=== PATIENT | male | born 1955 | race Caucasian/White ===

== ENCOUNTER 2018-02-06 06:40 | Day surgery (SDC) | payer BC, OTHER ==
[2018-01-31 13:07] VITALS: BMI 26.9
[~2018-02-06 06:40] MED LIST: HEPARIN SODIUM,PORCINE 5,000 UNIT/ML 1 ML VIAL SQ ONE; ceFAZolin IN SWFI 2 GM/20 ML SYRINGE IVP ONE
[2018-02-06] MEDS ORDERED: MORPHINE SULFATE 10 MG/ML SYRINGE ONE (07:28)
[2018-02-06] MEDS ORDERED: LIDOCAINE 1% INJ 10MG/ML (20 ML MDV) ONE (07:28)
[2018-02-06] MEDS ORDERED: KETOROLAC 30 MG/ML 1 ML VIAL ONE (07:28)
[2018-02-06] MEDS ORDERED: ROCURONIUM BROMIDE 10 MG/ML 10 ML VIAL IV ONE (07:28)
[2018-02-06] MEDS ORDERED: PROPOFOL 10 MG/ML 20 ML VIAL IV ONE (07:28)
[2018-02-06] MEDS ORDERED: NEOSTIGMINE 1 MG/ML 10 ML VIAL ONE (07:28)
[2018-02-06] MEDS ORDERED: fentaNYL (PF) 50 MCG/ML 2 ML AMP ONE (07:28)
[2018-02-06] MEDS ORDERED: GLYCOPYRROLATE 0.2 MG/ML 2 ML VIAL ONE (07:28)
[2018-02-06] MEDS ORDERED: MIDAZOLAM 2 MG/2 ML VIAL ONE (07:28)
[2018-02-06] MEDS ORDERED: HYDROmorphone (PF) 1 MG/ML ONE ×2 (07:28)
[2018-02-06] MEDS ORDERED: LACTATED RINGERS 400 ML IV ONE (11:08)
[2018-02-06] MEDS ORDERED: IV FLUID CONTINUATION 300 ML IV ONE (11:09)
[2018-02-06] MEDS ORDERED: ONDANSETRON 4 MG/2 ML VIAL IVP ONE (11:17)
[2018-02-06] MEDS ORDERED: LACTATED RINGERS 1,000 ML IV SCH (11:17)
[2018-02-06] MEDS ORDERED: HYDROmorphone 0.5 MG/0.5 ML SYRINGE IVP PRN (11:17)
[2018-02-06] MEDS ORDERED: DEXAMETHASONE SOD PHOSPHATE 10 MG/ML 1 ML VIAL IV ONE (11:17)
[2018-02-06 11:28] VITALS: RESP 18
[2018-02-06] MEDS ORDERED: HYDROcodone/APAP 5-325MG 1 EACH TAB PO ONE (11:31)
[2018-02-06 11:45] VITALS: BP 121/61; PULSE 70
--- NOTE | 2018-02-06 14:11 | OP ---
OPERATIVE REPORT PREOP DIAGNOSIS: Bilateral inguinal hernia. POSTOP DIAGNOSIS: Bilateral inguinal hernia. PROCEDURE: Laparoscopic bilateral inguinal herniorrhaphy with da Alpesh assistance with mesh. ANESTHESIA: General. SURGEON: Dr. Barba. COMPLICATIONS: None. PROCEDURE: The patient was brought in and placed on the operative table in supine position. The patient is placed under general anesthesia at that time. The patient was then placed in lithotomy. The abdomen is prepped and draped in usual sterile fashion. A supraumbilical 12 mm incision was made horizontally. The fascia was retracted anteriorly with Thomas forceps. A Veress needle was advanced in the peritoneal cavity. The saline drop test was normal. The insufflation to place to 15 mmHg. A 5 mm trocar was then inserted. The patient's peritoneal cavity was inspected. The patient had a small direct and small indirect left inguinal hernia. The patient had a moderate to large-sized right inguinal hernia and there were some adhesions between the cecum and the right lower quadrant abdominal wall. The appendix was inspected and appeared normal. An incision was made superior to the internal inguinal ring along the peritoneum and the preperitoneal space was fully dissected on the right side first. The hernia sac was reduced back into the peritoneal cavity and fully dissected. Care was taken to avoid injuries to the spermatic cord structures. Once the space was fully dissected, the left side was addressed in a similar fashion. An incision was again made in the peritoneum and full dissection of the preperitoneal space took place. At that point, the 10 x 15 mm Pro documentation billing clerk mesh was utilized bilaterally. We had a space that the mesh was able to cross one another anterior to the bladder. The mesh was flattened out nicely. The peritoneal closure then took place using a running 2-0 V lock suture. A small defect in the right side and the peritoneum was closed using a [id number] 3-0 Vicryl suture. The sutures were removed. The fascia at the 12 mm site was closed using a [id number] 0 Vicryl suture. The skin was closed at all 3 incisions using 4-0 Monocryl sutures. Steri-Strips and sterile dressing applied. ADDENDUM: Following placement of a 5 mm trocar, this was switched to a 12 mm trocar after our two right and left upper quadrant 8 mm trocars were placed. MMODL / IJN: [id number] /
== END 2018-02-06 12:39 | disposition home or self-care (01) ==
LOC: OR 06:40
PROVIDERS: ATTEND Surgery
DX: K40.20 Bilateral inguinal hernia, without obstruction or gangrene, not specified as recurrent (principal); I10 Essential (primary) hypertension; K21.9 Gastro-esophageal reflux disease without esophagitis; Z79.899 Other long term (current) drug therapy
CPT/HCPCS: 49650; C1781

== ENCOUNTER → 2021-04-15 | Outpatient (CLI) | payer OTHER | END | disposition home or self-care (01) | LOC: LABWHC1 15:25 | PROVIDERS: ATTEND Family Medicine | DX: Z20.822 Contact with and (suspected) exposure to COVID-19 (principal) | CPT/HCPCS: U0003; C9803 ==